=== PATIENT | female | born 1990 | race African-American/Black ===

== ENCOUNTER 2017-05-12 19:41 | Emergency (ER) | payer MEDICAID ==
[~2017-05-12] VITALS: Ht 175.3 cm; Wt 140.2 kg
[2017-05-12 20:13] VITALS: BP 139/85
== END 2017-05-12 21:09 | disposition home or self-care (01) ==
LOC: ER 19:41
DX: J01.90 Acute sinusitis, unspecified (principal); J45.909 Unspecified asthma, uncomplicated; Z87.891 Personal history of nicotine dependence
CPT/HCPCS: A4606; Z7610